=== PATIENT | female | born 1995 | race Caucasian/White ===

== ENCOUNTER 2016-05-19 09:59 | Emergency (ER) | payer SELFPAY | END 2016-05-19 11:06 | disposition home or self-care (01) | LOC: FER 09:59 | DX: J06.9 Acute upper respiratory infection, unspecified (principal) | CPT/HCPCS: 71020; 99283 ==

== ENCOUNTER 2016-08-15 07:23 | Emergency (ER) | payer OTHER ==
[2016-08-15 07:42] LABS: BILIRUBIN NEGATIVE (NEGATIVE); BLOOD NEGATIVE Ery/uL (NEGATIVE); CLARITY CLEAR (CLEAR); COLOR YELLOW (YELLOW); GLUCOSE (U) NORMAL (NORMAL); KETONE (U) NEGATIVE (NEGATIVE); LEUKOCYTES NEGATIVE Leu/uL (NEGATIVE); NITRITE NEGATIVE (NEGATIVE); PROTEIN NEGATIVE (NEGATIVE); SPECIFIC GRAVITY 1.015 (1.001-1.030); UROBILINOGEN 0.2 mg/dL (0.2-1.0); pH 5.5 (5.0-9.0)
== END 2016-08-15 08:15 | disposition home or self-care (01) ==
LOC: FER 07:23
PROVIDERS: Emergency Medicine
DX: O99.611 Diseases of the digestive system complicating pregnancy, first trimester (principal); K21.9 Gastro-esophageal reflux disease without esophagitis; O26.891 Other specified pregnancy related conditions, first trimester; R30.0 Dysuria; Z3A.01 Less than 8 weeks gestation of pregnancy
CPT/HCPCS: 81003; 87088

== ENCOUNTER 2021-03-10 18:23 | Emergency (ER) | payer OTHER ==
[~2021-03-10 18:23] MED LIST: BENTYL10 MG PO; MEDROL 4MG DOSEP4 MG PO; ZPAK PO
[2021-03-10 19:34] LABS: CORONAVIRUS 2019 SARS-COV-2 POSITIVE (NEGATIVE); INFLUENZA A NAA NEGATIVE (NEGATIVE)
== END 2021-03-10 20:45 | disposition left against medical advice (07) ==
LOC: FER 18:23
PROVIDERS: Emergency Medicine
DX: U07.1 COVID-19 (principal); Z53.8 Procedure and treatment not carried out for other reasons
CPT/HCPCS: 99281; U0002

== ENCOUNTER 2021-06-20 10:54 | Emergency (ER) | payer OTHER ==
[2021-06-20 12:12] LABS: BILIRUBIN NEGATIVE (NEGATIVE); BLOOD NEGATIVE Ery/uL (NEGATIVE); CLARITY CLEAR (CLEAR); COLOR YELLOW (YELLOW); GLUCOSE (U) NORMAL (NORMAL); LEUKOCYTES TRACE Leu/uL (NEGATIVE); NITRITE NEGATIVE (NEGATIVE); PROTEIN NEGATIVE (NEGATIVE); UROBILINOGEN 0.2 mg/dL (0.2-1.0); pH 7.5 (5.0-9.0)
[2021-06-20 12:43] LABS: BACTERIA 1+
[2021-06-20 13:11] LABS: BASOPHIL 1.1 % (0-2); EOSINOPHIL 5.7 % (0-5); HCT 42.5 % (37.0-47.0); HGB 14.4 g/dl (12.5-16.0); LYMPHOCYTE 24.4 % (15-48); MCH 29.8 pg (25.0-31.0); MCHC 33.9 g/dL (32.0-36.0); MCV 87.8 fL (78.0-100.0); MONOCYTE 7.5 % (0-12); MPV 9.4 fL (6.0-9.5); NEUTROPHIL 61.2 % (41-80); NRBC 0; PLT 200 K/uL (150-400); RBC 4.84 M/uL (4.20-5.40); WBC 8.3 K/uL (4.0-10.5)
[2021-06-20 13:44] LABS: ALBUMIN 3.5 g/dL (3.4-5.0); BILIRUBIN - TOTAL 0.3 mg/dL (0.2-1.0); BUN/CREAT RATIO (CALC) 13.3 RATIO; CREATININE 0.75 mg/dL (0.51-0.95); GLOBULIN (CALCULATION) 4.1 g/dL; POTASSIUM 3.9 mmol/L (3.5-5.1); TOTAL PROTEIN 7.6 g/dL (6.4-8.2)
== END 2021-06-20 15:45 | disposition home or self-care (01) ==
LOC: FER 10:54
PROVIDERS: Emergency Medicine
DX: I88.0 Nonspecific mesenteric lymphadenitis (principal); N83.202 Unspecified ovarian cyst, left side; Z88.8 Allergy status to other drugs, medicaments and biological substances; Z28.310 Unvaccinated for COVID-19
CPT/HCPCS: 36415; 80053; 81001; 85025; J2405; Q9967

== ENCOUNTER 2021-10-25 07:29 | Emergency (ER) | payer OTHER ==
[2021-10-25] MEDS ORDERED: MOTRIN600 MG PO (09:57)
== END 2021-10-25 10:22 | disposition home or self-care (01) ==
LOC: FER 07:29
DX: S96.911A Strain of unspecified muscle and tendon at ankle and foot level, right foot, initial encounter (principal); Z28.310 Unvaccinated for COVID-19; Z88.8 Allergy status to other drugs, medicaments and biological substances; X50.1XXA Overexertion from prolonged static or awkward postures, initial encounter; Y92.009 Unspecified place in unspecified non-institutional (private) residence as the place of occurrence of the external cause
CPT/HCPCS: 73600; 73620